=== PATIENT | female | born 1950 | race Caucasian/White ===

== ENCOUNTER 2021-03-07 00:18 | Emergency (ER) | payer MEDICARE ==
[~2021-03-07 00:18] MED LIST: ACID REDUCER150 MG PO; ATIVAN0.5 MG PO; ATIVAN1 MG PO; DESENEX85 GM TOP; DIFLUCAN150 MG PO; DIGITEK125 MCG PO; ELMIRON100 MG PO; FEOSOL325 MG PO; LOPRESSOR50 MG PO; LYRICA 50MG CAP50 MG PO; LYRICA25 MG PO; METOPROLOL ER-1 EAC2 PO; NORCO 5-325 TA1 EACH PO; NORVASC5 MG PO; PENICILLIN V P250 M1 PO; PROTONIX40 MG PO; PROZAC20 MG PO; PYRIDIUM200 MG PO; SYNTHROID100 MCG PO; SYNTHROID75 MCG PO; VENTOLIN HFA18 GM INH; VICODIN 10/3251 EACH PO; WHEELCHAIR; XARELTO10 MG PO; ZOCOR20 MG PO
[2021-03-07 01:39] LABS: BASOPHIL 0.8 % (0-2); EOSINOPHIL 5.1 % (0-7); HGB 13.5 g/dl (12.5-16.0); LYMPHOCYTE 38.2 % (15-48); MCH 33.3 pg (25.0-31.0); MCHC 35.5 g/dL (32.0-36.0); MCV 93.6 fL (78.0-100.0); MONOCYTE 4.7 % (0-12); MPV 9.7 fL (6.0-9.5); NEUTROPHIL 50.9 % (41-80); NRBC 0; PLT 272 K/uL (150-400); RBC 4.06 M/uL (4.20-5.40); RDW 11.8 % (11.5-14.0)
[2021-03-07 01:48] LABS: INR 0.98 (0.9-1.2); PROTHROMBIN TIME 12.4 SECONDS (11.8-13.4); PTT 29.1 SECONDS (24.4-34.7)
[2021-03-07 02:03] LABS: ALBUMIN 3.9 g/dL (3.4-5.0); BILIRUBIN - TOTAL 0.3 mg/dL (0.2-1.0); BUN/CREAT RATIO (CALC) 15.6 RATIO; CREATININE 0.64 mg/dL (0.51-0.95); GLOBULIN (CALCULATION) 3.1 g/dL; MAGNESIUM 1.9 mg/dL (1.8-2.4); POTASSIUM 4.6 mmol/L (3.5-5.1)
[2021-03-07 02:14] LABS: CORONAVIRUS 2019 SARS-COV-2 NEGATIVE (NEGATIVE); INFLUENZA A NAA NEGATIVE (NEGATIVE)
[2021-03-07 02:27] LABS: BILIRUBIN NEGATIVE (NEGATIVE); BLOOD NEGATIVE Ery/uL (NEGATIVE); CLARITY CLEAR (CLEAR); COLOR YELLOW (YELLOW); GLUCOSE (U) NORMAL (NORMAL); LEUKOCYTES NEGATIVE Leu/uL (NEGATIVE); NITRITE POSITIVE (NEGATIVE); PROTEIN NEGATIVE (NEGATIVE); UROBILINOGEN 0.2 mg/dL (0.2-1.0); pH 7.5 (5.0-9.0)
[2021-03-07 02:31] LABS: BACTERIA 2+
[2021-03-07 03:32] LABS: FT4 (FREE T4) 1.2 ng/dL (0.76-1.46)
[2021-03-07] MEDS ORDERED: KEFLEX250 MG PO (05:30)
[2021-03-07] MEDS ORDERED: DIFLUCAN150 MG PO (05:30)
== END 2021-03-07 05:55 | disposition home or self-care (01) ==
LOC: FER 00:18
PROVIDERS: Emergency Medicine Emergency Medical Services
DX: I49.3 Ventricular premature depolarization (principal); I10 Essential (primary) hypertension; J44.9 Chronic obstructive pulmonary disease, unspecified; F17.210 Nicotine dependence, cigarettes, uncomplicated; Z20.822 Contact with and (suspected) exposure to COVID-19; Z88.2 Allergy status to sulfonamides; Z88.6 Allergy status to analgesic agent; Z79.899 Other long term (current) drug therapy
CPT/HCPCS: 36415; 71045; 80053; 80162; 81001; 83735; 83880; 84145; 84439; 84443; 84484; 85025; 85610; 85730; 87088; 93005; U0002